=== PATIENT | female | born 1985 | race Two or more races ===

== ENCOUNTER 2021-04-16 14:38 | Emergency (ER) | payer SELFPAY ==
[~2021-04-16] VITALS: Ht 160 cm; Wt 70.3 kg
--- NOTE | 2021-04-16 14:58 | NUR ---
BIB [facility] FROM HOME ETOH. PT HAS A HISTORY OF LIVER CIRRHOSIS. VITALS ARE WITHIN NORMAL LIMITS. BREATHING IS EVEN AND UNLABORED. PT ATTACHED TO MONITOR. BLANKET PROVIDED FOR COMFORT.
--- NOTE | 2021-04-16 15:00 | NUR ---
PT STATED HER LAST DRINK WAS AN HOUR AGO. PT IS BLEEDING FROM HER MOUTH FROM AN INTERNAL LACERATION ON HER LIP.
--- NOTE | 2021-04-16 15:05 | NUR ---
LAB AT BEDSIDE
[2021-04-16 15:40] LABS: BASOPHILS # (AUTO) 0.2 K/uL (0.0-0.2); BASOPHILS % (AUTO) 2.1 % (0.0-2.0); EOSINOPHILS % (AUTO) 1.4 % (0.0-6.0); HEMATOCRIT 35 % (33-45); LYMPHOCYTES # (AUTO) 3.6 K/uL (0.8-4.8); LYMPHOCYTES % (AUTO) 35.2 % (20.0-44.0); MEAN CORPUSCULAR HGB CONC 32 g/dl (31.0-36.0); MEAN CORPUSCULAR VOLUME 85 fL (82-100); MONOCYTES # (AUTO) 0.4 K/uL (0.1-1.30); MONOCYTES % (AUTO) 3.9 % (2.0-12.0); NEUTROPHILS # (AUTO) 5.8 K/uL (1.8-8.9); NEUTROPHILS % (AUTO) 57.4 % (43.0-81.0); PLATELET COUNT (AUTO) 360 K/uL (150-450); RED BLOOD CELL COUNT(AUTO) 4.09 MIL/uL (4.0-5.2); WHITE BLOOD COUNT (AUTO) 10.2 K/uL (4.3-11.0)
--- NOTE | 2021-04-16 16:10 | NUR ---
URINE COLLECTED AND SENT
[2021-04-16 16:16] LABS: BILIRUBIN,URINE Negative (NEGATIVE); COLOR,URINE YELLOW (YELLOW); LEUKOCYTE ESTERASE ,URINE Small (NEGATIVE); NITRITE, URINE Negative (NEGATIVE); PROTEIN,URINE Negative (NEGATIVE); UGLUCOSE Negative (NEGATIVE); UROBILINOGEN,URINE 0.2 EU/dL (0.2)
[2021-04-16 16:48] LABS: CALCIUM, SERUM 8.8 mg/dL (8.5-10.1); CARBON DIOXIDE 14 mmol/L (21-32); CHLORIDE 104 mmol/L (98-107); CREATININE 0.7 mg/dL (0.6-1.3); GLUCOSE 72 mg/dL (74-106); POTASSIUM 3.9 mmol/L (3.5-5.1); SODIUM SERUM 139 mmol/L (136-145); UREA NITROGEN, BLOOD 9 mg/dL (7-18)
[2021-04-16 16:55] LABS: ALANINE AMINOTRANSFERASE 41 U/L (12-78); ALKALINE PHOSPHATASE 142 U/L (46-116); ASPARTATE AMINOTRANSFERASE 72 U/L (15-37); BILIRUBIN,TOTAL 0.8 mg/dL (0.2-1.0)
[2021-04-16 16:59] LABS: BACTERIA,URINE None seen /HPF (None Seen); SQUAMOUS EPITHELIAL CELL,UR 0-2 /HPF (None Seen)
[2021-04-16 17:12] LABS: ALBUMIN 4.1 g/dL (3.4-5.0); BILIRUBIN,DIRECT 0.4 mg/dL (0.0-0.2)
[2021-04-16 17:14] LABS: ACETAMINOPHEN < 0 ug/ml (10-30); ALCOHOL, BLOOD < 3 mg/dL (0-0)
[2021-04-16] MEDS ORDERED: CHLO25CA22 PO (17:28)
[2021-04-16] MEDS ORDERED: NITR100C6 PO (17:29)
[2021-04-16] MEDS ORDERED: CEFTRIAXONE 1 G in IV D5W 50 ML IV ONE (17:30)
[2021-04-16] MEDS ORDERED: LORAZEPAM 1 MG TABLET PO ONE (17:30)
[2021-04-16] MEDS ORDERED: CEFTRIAXONE 1GM BAG (ER ONLY) 50 ML IV ONE (17:48)
[2021-04-16] MEDS ORDERED: LORAZEPAM 1 MG TABLET ONE (17:48)
[2021-04-16 18:34] VITALS: BP 110/61
--- NOTE | 2021-04-16 18:34 | NUR ---
IV removed. Catheter intact and site benign. Pressure and 4x4 applied to site. No bleeding noted.Patient discharged to home in stable condition. Written and verbal after care instructions given. Patient verbalizes understanding of instruction.
== END 2021-04-16 18:35 | disposition home or self-care (01) ==
LOC: ER 14:40
DX: F10.239 Alcohol dependence with withdrawal, unspecified (principal); N39.0 Urinary tract infection, site not specified; F12.10 Cannabis abuse, uncomplicated; D64.9 Anemia, unspecified; Z79.899 Other long term (current) drug therapy; Y90.0 Blood alcohol level of less than 20 mg/100 ml
CPT/HCPCS: 36415; 80048; 80076; 80143; 80307; 80320; 81001; 84702; 85025; 87077; 87086; 96365; 99284; J0696; G0480